=== PATIENT | male | born 1990 | race American Indian/Alaskan Native ===

== ENCOUNTER 2020-08-03 11:10 | Emergency (ER) | payer SELFPAY ==
[2020-08-03 11:44] VITALS: BP 133/74
--- NOTE | 2020-08-03 13:53 | Emergency Department Report ---
Chief Complaint: Urogenital-Male Stated Complaint: STD Time Seen by Provider: 08/03/20 13:50 - HPI History of Present Illness: The patient was evaluated in the emergency department for symptoms described in the history of present illness. He/she was evaluated in the context of the global COVID-19 pandemic, which necessitated consideration that the patient might be at risk for infection with the virus that causes COVID-19. Institutional protocols and algorithms that pertain to the evaluation of patients at risk for COVID-19 are in a state of rapid change based on information released by regulatory bodies including the CDC and federal and state organizations. These policies and algorithms were followed during the patient's care in the emergency department. Please note that these policies, procedures and recommendations changed on a rapid basis. 30-year-old -[place] male presents to the emergency room stating that he has had penile discharge and dysuria for the last 3 days. Patient states he feels like he has gotten burned. Patient states that he went to [place] [employer] and slept with a few females in the next couple days he started having burning in penile discharge. Patient denies any fever chills no nausea no vomiting. 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 Patient denies any direct trauma. - Exam Vital Signs: Vital Signs 08/03/20 11:42 Temperature 98.0 F Pulse Rate 54 L Respiratory 18 Rate Blood Pressure 133/74 O2 Sat by Pulse 97 Oximetry Physical Exam: Patient is alert and oriented x3 no acute distress nontoxic in appearance. Nonlabored breathing no accessory muscles used Ambulatory without difficulties. MSE screening note: Focused history and physical exam performed. Due to findings the following was ordered: 30-year-old -[place]ominican male presents to the emergency room stating that he has had penile discharge and dysuria for the last 3 days. Patient states he f eels like he has gotten burned. Patient states that he went to [place] [employer] and slept with a few females in the next couple days he started having burning in penile discharge. Patient denies any fever chills no nausea no vomiting. 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 Patient denies any direct trauma. Recommend patient to follow-up at her urgent care [facility] for full STD work-up. ED Disposition for MSE Condition: Stable Referrals: PRIMARY CARE, [Primary Care Provider] - 3-5 Days
== END 2020-08-03 14:00 ==
LOC: ED 11:10
DX: R36.9 Urethral discharge, unspecified (principal); Z53.21 Procedure and treatment not carried out due to patient leaving prior to being seen by health care provider